=== PATIENT | female | born 1965 | race Two or more races ===

== ENCOUNTER 2017-01-22 09:56 | Emergency (ER) | payer MEDICAID ==
[~2017-01-22] VITALS: Ht 165.1 cm; Wt 74.8 kg
[2017-01-22 09:56] VITALS: BP 134/81
== END 2017-01-22 12:08 | disposition home or self-care (01) ==
LOC: ER 09:57
DX: M67.431 Ganglion, right wrist (principal)
CPT/HCPCS: 29125; 73110; 99284; A4606; Z7610

== ENCOUNTER 2019-02-21 15:55 | Emergency (ER) | payer MEDICAID ==
[~2019-02-21] VITALS: Ht 162.6 cm; Wt 78.0 kg
--- NOTE | 2019-02-21 16:17 | NUR ---
PT AAOX4. AMBULATORY C/O R KNEE PAIN S/P MECHANICAL GLF AT 1500
[2019-02-21] MEDS ORDERED: IBUPROFEN 600 MG TABLET PO ONE ×2 (16:51→17:00)
[2019-02-21] MEDS ORDERED: ACETAMINOPHEN 325 MG TABLET ONE (16:51)
[2019-02-21] MEDS ORDERED: ACETAMINOPHEN 325 MG TABLET PO ONE (17:00)
--- NOTE | 2019-02-21 17:03 | NUR ---
PT TAKEN TO XRAY
--- NOTE | 2019-02-21 17:54 | NUR ---
EMT AT BEDSIDE FOR KAITLYNN WRAP
--- NOTE | 2019-02-21 18:20 | NUR ---
Patient discharged to home in stable condition. Written and verbal after care instructions given. Patient verbalizes understanding of instruction and RX. PT ambulatory with a steady gait.
[2019-02-21 18:21] VITALS: BP 134/78
== END 2019-02-21 18:21 | disposition home or self-care (01) ==
LOC: ER 15:55
DX: S63.591A Other specified sprain of right wrist, initial encounter (principal); M53.3 Sacrococcygeal disorders, not elsewhere classified; M25.561 Pain in right knee; W18.39XA Other fall on same level, initial encounter; Y93.89 Activity, other specified; Y92.89 Other specified places as the place of occurrence of the external cause; Y99.8 Other external cause status
CPT/HCPCS: 72170-TC; 72220-TC; 73564-TC

== ENCOUNTER 2020-04-14 11:00 | Emergency (ER) | payer MEDICAID ==
[~2020-04-14] VITALS: Ht 165.1 cm; Wt 80.3 kg
--- NOTE | 2020-04-14 11:00 | NUR ---
PT BIB SON C/O LOWER BACK PAIN S/P GLF YESTERDAY. PT IS AAOX4, NOT IN RESPIRATORY DISTRESS, V/S STABLE, KEPT RESTED AND COMFORTABLE. WILL CONTINUE TO MONITOR.
--- NOTE | 2020-04-14 11:14 | NUR ---
SEEN AND EXAMINED BY .
[2020-04-14 12:19] VITALS: BP 136/96
--- NOTE | 2020-04-14 12:19 | NUR ---
PT. VERBALIZED UNDERSTANDING OF AFTERCARE INSTRUCTIONS.Patient discharged to home in stable condition. Written and verbal after care instructions given. Patient verbalizes understanding of instruction.
== END 2020-04-14 12:20 | disposition home or self-care (01) ==
LOC: ER 11:17
DX: M54.5 Low back pain (principal); W18.39XA Other fall on same level, initial encounter; Y93.89 Activity, other specified; Y92.89 Other specified places as the place of occurrence of the external cause; Y99.8 Other external cause status
CPT/HCPCS: 72110-TC